=== PATIENT | female | born 1970 | race American Indian/Alaskan Native ===

== ENCOUNTER 2020-01-08 18:19 | Emergency (ER) | payer MEDICAID ==
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
[2020-01-08 19:19] VITALS: BP 106/72
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
[2020-01-08] MEDS ORDERED: HYDROcodone/ACETAMINOPHEN 7.5-325MG TAB PO ONE (21:48)
[2020-01-08] MEDS ORDERED: ONDANSETRON 4 MG ODT TAB PO ONE (21:48)
[2020-01-08] MEDS ORDERED: IBUPROFEN 600 MG TAB PO ONE (21:48)
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
== END 2020-01-08 23:40 | disposition home or self-care (01) ==
LOC: ED 18:19
DX: S93.402A Sprain of unspecified ligament of left ankle, initial encounter (principal); M62.830 Muscle spasm of back; M62.838 Other muscle spasm; V89.2XXA Person injured in unspecified motor-vehicle accident, traffic, initial encounter; Y93.89 Activity, other specified; Y92.89 Other specified places as the place of occurrence of the external cause; Y99.8 Other external cause status
CPT/HCPCS: 72040; 72100; Q0162